=== PATIENT | female | born 1950 | race Caucasian/White ===

== ENCOUNTER 2016-05-01 11:52 | Emergency (ER) | payer BC, OTHER ==
[~2016-05-01] VITALS: Ht 165.1 cm; Wt 63.0 kg
[~2016-05-01 11:52] MED LIST: CEPH-443 PO
[2016-05-01 11:55] VITALS: Ht 165.1 cm; Wt 63.0 kg
[2016-05-01 13:02] LABS: URINE BLOOD (Dip) POC 3+ (NEGATIVE)
[2016-05-01] MEDS ORDERED: CEPH-443 PO (13:04)
--- NOTE | 2016-05-01 13:35 | ERD ---
ER Documentation Chief Complaint Date/Time DATE: 05/01/16 TIME: 13:32 Chief Complaint dysuria and blood and her urine HPI Patient is a 65-year-old female who presents to the ED with dysuria, urgency since last night. She states that she has had these symptoms in the past and complains of burning with urination as well as hematuria. She denies fever or chills. She denies nausea, vomiting or diarrhea. She denies back pain or any abdominal pain. She denies suprapubic pain. She denies pelvic pain. She denies chest pain, cough or shortness of breath. She denies dizziness or headache or weakness. She denies leg pain or swelling. ROS All systems reviewed and are negative except as per history of present illness. Medications Home Meds Active Scripts Cephalexin* (Keflex*) 500 Mg Capsule, 500 MG PO QID for 5 Days, CAP Prov:SALLIE WELLS PA-C 05/01/16 Cephalexin* (Keflex*) 500 Mg Capsule, 500 MG PO QID for 5 Days, CAP Prov:NADJA CRUZ MD 12/11/14 Allergies Allergies: Coded Allergies: No Known Allergy (Unverified , 09/05/14) PMhx/Soc History of Surgery: Yes (c section x3 ) Anesthesia Reaction: No Hx Neurological Disorder: No Hx Respiratory Disorders: No Hx Cardiac Disorders: Yes (htn) Hx Psychiatric Problems: No Hx Miscellaneous Medical Probl: Yes (HLD thyroid ) Hx Alcohol Use: No Hx Substance Use: No Hx Tobacco Use: No FmHx Family History: No coronary disease, No diabetes, No other Physical Exam Vitals Vital Signs Date Time Temp Pulse Resp B/P Pulse Ox O2 Delivery O2 Flow Rate FiO2 05/01/16 11:55 98.0 101 18 131/69 98 Physical Exam GENERAL: Well-developed, well-nourished female. Appears in no acute distress. HEAD: Normocephalic, atraumatic. NECK: Supple. No lymphadenopathy or thyromegaly. No meningismus. LUNG: Clear to auscultation bilaterally. No rhonchi, wheezing, rales or coarse breath sounds. HEART: Regular rate and rhythm. No murmurs, rubs or gallops. ABDOMEN: No scars, ecchymosis or rashes noted. Soft, nontender, and nondistended. Positive bowel sounds in all four quadrants. No rebound tenderness , no guarding. (-) McBurneys point tenderness. No CVA tenderness. No suprapubic tenderness BACK: No midline tenderness. Extremities: Equal pulses bilaterally. No peripheral clubbing, cyanosis or edema. No unilateral leg swelling. NEUROLOGIC: Alert and oriented. Moving all four extremities. 5/5 strength in all extremities. Normal speech. Steady gait. SKIN: Normal color. Warm and dry. No rashes or lesions. Capillary refill < 2 seconds Results 24 hrs Laboratory Tests Test 05/01/16 13:01 Bedside Urine Blood 3+ Bedside Urine Glucose (UA) Negative Bedside Urine Ketones (LAB) Negative Bedside Urine Leukocyte Esterase (L 3+ Bedside Urine Nitrite (LAB) Negative Bedside Urine Protein (LAB) 2+ Bedside Urine pH (LAB) 5.5 Procedures/MDM ER COURSE: I kept the patient and/or family informed of laboratory and diagnostic imaging results throughout the emergency room course. LAB INTERPRETATION: UA showed no evidence 2+ protein, 3+ blood and 3+ leukocyte. MEDICAL DECISION MAKING: This is a 65-year-old female who presents with dysuria and urgency. Vital signs were reviewed. Patient is afebrile. Patient is not hypoxic. Patient likely has a UTI. Low suspicion for ovarian torsion, PID, tuboovarian abscess, ectopic , bowel obstruction, pyelonephritis, appendicitis. Low suspicion for ACS, AAA, perforated ulcer, bowel obstruction, cholecystitis, choledocholithiasis, cholangitis, pancreatitis, hepatic abscess, appendicitis, diverticulitis. Low suspicion for pyelonephritis or nephrolithiasis. Patient does not have CVA tenderness, afebrile and denies pain. DISCHARGE: At this time, patient is stable for discharge and outpatient management with no new complaints during the ER course. Patient was sent home with Keflex. Patient will be discharged home with instructions to recheck for new or worsening symptoms such as fever, nausea, weakness, LOC and to follow up with primary care in the next 1-2 days. Patient was advised to return to the ER for any new or worsening symptoms. Plan was discussed and patient and/or family understands and agrees. Home instructions were given. Departure Diagnosis: Primary Impression: UTI (lower urinary tract infection) Condition: Stable Patient Instructions: Understanding Urinary Tract Infections (UTIs) Referrals: COMM[facility] YOU HAVE RECEIVED A MEDICAL SCREENING EXAM AND THE RESULTS INDICATE THAT YOU DO NOT HAVE A CONDITION THAT REQUIRES URGENT TREATMENT IN THE EMERGENCY DEPARTMENT. FURTHER EVALUATION AND TREATMENT OF YOUR CONDITION CAN WAIT UNTIL YOU ARE SEEN IN YOUR DOCTORS OFFICE WITHIN THE NEXT 1-2 DAYS. IT IS YOUR RESPONSIBILITY TO MAKE AN APPOINTMENT FOR FOLOW-UP CARE. IF YOU HAVE A PRIMARY DOCTOR --you should call your primary doctor and schedule an appointment IF YOU DO NOT HAVE A PRIMARY DOCTOR YOU CAN CALL OUR PHYSICIAN REFERRAL HOTLINE AT IF YOU CAN NOT AFFORD TO SEE A PHYSICIAN YOU CAN CHOSE FROM THE FOLLOWING [facility] [address] [facility]. [facility] [address] [facility] [facility] [address] [facility] [facility] [address] [facility] [facility] [address] [facility]. [facility] [address] Additional Instructions: Call your primary care doctor TOMORROW for an appointment during the next 1-2 days.See the doctor sooner or return here if your condition worsens before your appointment time. SALLIE WELLS PA-C May 01, 2016 13:35 SALLIE WELLS PA-C May 01, 2016 13:35
== END 2016-05-01 13:15 | disposition home or self-care (01) ==
LOC: FTE 11:52
DX: N39.0 Urinary tract infection, site not specified (principal); I10 Essential (primary) hypertension
CPT/HCPCS: 81003; 99283